=== PATIENT | male | born 1995 | race Caucasian/White ===

== ENCOUNTER 2018-02-07 03:30 | Emergency (ER) | payer SELFPAY ==
[~2018-02-07] VITALS: Ht 185.4 cm; Wt 74.8 kg
--- NOTE | 2018-02-07 03:30 | NUR ---
PT BIBA BLS. TAKEN TO BED 9
--- NOTE | 2018-02-07 03:35 | NUR ---
Dr. Brandt evaluating patient at bedside.
[2018-02-07 03:37] VITALS: BP 145/71
--- NOTE | 2018-02-07 03:38 | NUR ---
22YO M BIBA PATIENT PRESENTS TO ED FOR ETOH . EMS STATES THAT PT WAS FOUND SLEEPING ON THE GROUND . EMS STATES N/V/D; SKIN IS PINK/WARM/DRY; AAOX4 WITH EVEN AND STEADY GAIT; LUNGS CLEAR BL; HR EVEN AND REGULAR; PT DENIES ANY FEVER, CP, SOB, OR COUGH AT THIS TIME; PATIENT STATES PAIN OF 0/10 AT THIS TIME; VSS; PATIENT POSITIONED FOR COMFORT; HOB ELEVATED; BEDRAILS UP X2; BED DOWN. ER MD MADE AWARE OF PT STATUS.
[2018-02-07] MEDS ORDERED: NACL 0.9% 1,000 ML IV ONE (03:55)
--- NOTE | 2018-02-07 03:58 | NUR ---
PT CO OF NASEUA. ERMD MADE AWARE
[2018-02-07] MEDS ORDERED: ONDANSETRON 4 MG/2 ML VIAL IVP ONE (04:00)
--- NOTE | 2018-02-07 04:00 | NUR ---
[facility] AT BEDSIDE
--- NOTE | 2018-02-07 04:15 | NUR ---
PT DENIES ANY NASUEA AT THIS TIME
--- NOTE | 2018-02-07 04:29 | NUR ---
PT VOMITING, PT REFUSING ANY NAUSEA MEDICATION.
--- NOTE | 2018-02-07 05:00 | NUR ---
PT SLEEPING IN NO APPARENT DISTRESS. WILL CONTINUE TO MONITOR
--- NOTE | 2018-02-07 05:13 | NUR ---
FRIEND WAS CALLED TO CONFIRM A RIDE. LORENZO [phone] STATES THAT SHE CAN KENO WRITER / RUNNER PT WHEN READY. PT DIFFICULT TO WAKE. VSS. WAIT TO DC TILL 6AM PER DR MOREL.
--- NOTE | 2018-02-07 06:09 | NUR ---
PT AWAKE AND ALERT, ABLE TO AMBULAT WITH A STEADY GAIT. PT'S FRIEND HAS BEEN CALLED TO ECHOCARDIOGRAPH TECHNICIAN PT . PT OKAYED TO DC BY DR MOREL
[2018-02-07 06:20] VITALS: BP 113/60
--- NOTE | 2018-02-07 06:20 | NUR ---
Patient discharged with v/s stable. Written and verbal after care instructions given and explained. Patient verbalized understanding. Ambulatory with steady gait. All questions addressed prior to discharge. Advised to follow up with PMD.
== END 2018-02-07 06:20 | disposition home or self-care (01) ==
LOC: MED 03:30
DX: F10.129 Alcohol abuse with intoxication, unspecified (principal)
CPT/HCPCS: 96360; 99284; J2405; J7030